=== PATIENT | male | born 1945 | race Caucasian/White ===

== ENCOUNTER → 2021-05-15 | Outpatient (CLI) | payer MEDICARE ==
--- NOTE | 2021-05-15 15:20 | RAD ---
XR FOOT_LEFT 3 VIEWS 05/15/2021 Reason: LEFT FOOT PAIN X 1 MONTH, NKI Comparison: None Technique: 3 views of the left foot Findings: There is no acute fracture or dislocation. There is complete joint space loss at the first metatarsop halangeal joint with subchondral sclerosis. Bone mineralization is within normal limits. Soft tissues are normal. Impression: 1. No acute osseous abnormality. 2. Osteoarthrosis of the first MTP Electronically signed by: Jason Rodas (05/15/2021 3:18 PM) [id number]
== END ==
LOC: RAD 10:36
PROVIDERS: ATTEND Physician Assistant
DX: M19.072 Primary osteoarthritis, left ankle and foot (principal)
CPT/HCPCS: 73630

== ENCOUNTER → 2021-10-06 | Outpatient (CLI) | payer MEDICARE ==
--- NOTE | 2021-10-06 11:06 | RAD ---
Study: XR FOOT_LEFT 3 VIEWS Indication: Pain. No known injury. Comparison: 05/15/2021 Findings: Redemonstration of moderate/severe great toe MTP joint arthrosis with [id number] at the medial aspe ct of the joint and osteophyte formation. Only mild arthrosis at additional locations such as the laura onavicular joint. Plantar calcaneal spur. Within normal limits alignment on the weightbearing lateral view. Impression: Moderate/severe arthrosis at the great toe MTP joint without significant change from 05/15/2021. Plant ar calcaneal spur. Electronically signed by: JANESSA HOWARD MD (10/06/2021 11:04 AM) [id number]
== END ==
LOC: RAD 08:01
PROVIDERS: ATTEND Podiatrist
DX: M19.072 Primary osteoarthritis, left ankle and foot (principal); M77.32 Calcaneal spur, left foot; M25.775 Osteophyte, left foot
CPT/HCPCS: 73630